=== PATIENT | female | born 1955 | race Caucasian/White ===

== ENCOUNTER 2024-02-01 14:11 | Emergency (ER) | payer MEDICARE, BC, SELFPAY ==
[2024-02-01] VITALS (118 sets, daily range): BP systolic 104–157; BP diastolic 36–108; PULSE 49–93; RESP 11–24; TEMP 36.6; O2SAT 94–100
--- NOTE | 2024-02-01 14:00 | RT.EKG_ITS ---
APPROVED REPORT Exam: Resting ECG Reason for Exam: CP Patient Location: E HR:61 bpm ECG Measurements Heart Rate 61 AXIS AL 199 P -35 QRSd 97 QRS -67 QT 481 T 94 QTc 487 Conclusion Sinus rhythm...normal P axis, V-rate 60- 99 Left anterior fascicular block...axis(240,-40), init forces inf Anterior infarct, old...Q >40mS, abnormal ST-T, V2-V5 sinus rhythm, left axis, prlonged qtc, t wave inversions V1 V2, flattening/biphasis t waves laterally
--- NOTE | 2024-02-01 14:15 | DI.RAD_ITS ---
Exam(s) XR CHEST 2V PA LATERAL EXAM: XR CHEST 2V PA LATERAL CLINICAL HISTORY: chest pain. TECHNIQUE: 2D digital imaging was performed. COMPARISON: No exams were available for comparison FINDINGS: 2 views: Chest leads in place and there is sternotomy wires as well as evidence of previous CABG Heart size is normal. The mediastinum is not widened. Lungs are clear. No infiltrates nor pleural effusions. No evidence of pulmonary edema. No fractures. IMPRESSION: No acute pulmonary findings. Prior sternotomy/CABG. Normal heart size. No CHF. DATA REPOSITORY: RADIATION DOSE DELIVERED:
--- NOTE | 2024-02-01 14:21 | ED.GENADUL_ITS ---
Discharge Plan Disposition Patient Disposition: Transfer-Acute Inpatient Care Specific Acute Inpt Facility: [facility] Condition: Stable Discharge Details Chief Complaint: Chest Pain Clinical Impression: Non-ST elevation CA (NSTEMI) Primary Care Provider: Pedro Luis Dick ED Provider: Keny Kong Home Meds and New Rx's Prescriptions: No Action duloxetine [Cymbalta] 60 mg capsule,delayed release(DR/EC) 60 mg PO DAILY furosemide 80 mg tablet 80 mg PO DAILY topiramate 50 mg capsule,extended release 24hr 50 mg PO BID Incruse Ellipta 62.5 mcg/actuation blister with device 1 inh inhalation DAILY allopurinol 300 mg tablet 300 mg PO DAILY asprin EC 81 mg 81 mg PO DAILY potassium Cl ER 20 mEq 20 meq PO BID metoprolol succinate 50 mg tablet extended release 24 hr 50 mg PO DAILY pravastatin 80 mg tablet 80 mg PO ONCE HPI General Date/Time Provider Initiated Documentation: 02/01/24 14:12 . HPI Narrative: 68-year-old female history of CABG, presents with nonexertional anterior chest pain over the past 12 hours with exertional shortness of breath, initial symptomatology began on . Related Data Home Medications ?Medication ?Instructions ?Recorded ?Confirmed asprin EC 81 mg PO DAILY 02/01/24 02/01/24 allopurinol 300 mg tablet 300 mg PO DAILY 02/01/24 02/01/24 duloxetine 60 mg capsule,delayed 60 mg PO DAILY 02/01/24 02/01/24 release (Cymbalta) furosemide 80 mg tablet 80 mg PO DAILY 02/01/24 02/01/24 metoprolol succinate 50 mg 50 mg PO DAILY 02/01/24 02/01/24 tablet,extended release 24 hr potassium Cl ER 20 meq PO BID 02/01/24 02/01/24 pravastatin 80 mg tablet 80 mg PO ONCE 02/01/24 02/01/24 topiramate 50 mg capsule,extended 50 mg PO BID 02/01/24 02/01/24 release 24 hr umeclidinium 62.5 mcg/actuation 1 inh inhalation DAILY 02/01/24 02/01/24 blister powder for inhalation (Incruse Ellipta) Allergies Allergy/AdvReac Type Severity Reaction Status Date / Time Penicillins Allergy Mild Nausea Verified 02/01/24 14:42 ciprofloxacin Allergy Unknown Unknown Verified 02/01/24 14:42 Dihydroaminopryidine Allergy Unknown Unknown Verified 02/01/24 14:42 Antibiotics naproxen Allergy Unknown Unknown Verified 02/01/24 14:42 NSAIDS (Non-Steroidal Allergy Unknown Unknown Verified 02/01/24 14:42 Anti-Inflamma Quinolones Allergy Unknown Unknown Verified 02/01/24 14:42 Sulfa (Sulfonamide Allergy Unknown Anaphylaxis Verified 02/01/24 14:42 Antibiotics) sulfamethoxazole (From Allergy Unknown Unknown Verified 02/01/24 14:42 Bactrim) trimethoprim Allergy Unknown Anaphylaxis Verified 02/01/24 14:42 salicylates AdvReac Unknown Anaphylaxis Verified 02/01/24 14:42 betalactams Allergy Unknown Unknown Uncoded 02/01/24 14:42 General Stated Complaint: Chest Pain ALEC: 3 Exam Narrative Exam Narrative: Alert oriented interactive speaking full sentences Heart sounds normal no murmurs rubs or gallops Lungs clear bilaterally no wheezes rales or rhonchi Abdomen soft nontender nondistended Extremities without deficits no signs of rash or trauma No peripheral edema Alert oriented cranial nerves intact moving all extremities without deficit no ataxia Course Vital Signs Vital signs: Respiratory Effort Normal 02/01/24 14:14 Pain Level 0 02/01/24 14:10 Medical Decision Making 68-year-old female history of CABG presents with chest pain since worse over the last 12 hours anterior nature associate with exertional shortness of breath. Alert oriented interactive hemodynamically stable speaking full sentences no tachypnea lungs clear normal heart sounds no peripheral edema. EKG left axis some flattening of T waves laterally some T wave inversions anteriorly, some ectopy on monitor. Consider ACS lower suspicion for PE aortic pathology pneumonia pneumothorax versus pleurisy versus costochondritis versus CHF will obtain stat labs chest x-ray; patient loaded with aspirin 324 before ar rival, took a nitro at home and had a nitro and route by EMS which improved her symptoms she is chest pain-free currently 16: 32 patient resting comfortably did receive 1 more nitro after arrival due to some nonexertional mild chest pain right anterior chest resolved, troponin elevated 192 at arrival, repeat 1 hour 192 as well, patient remains chest pain- free hemodynamically stable, given extensive cardiac history involving CABG and stenting I have placed a consultation with [facility] cardiology to determine potential for cardiac catheterization. Heparin has been started. 17: 09 patient having some nausea and chest discomfort repeat EKG showing regular narrow complex rhythm read as junctional however there are P waves present in V2 V3, anterior lateral T waves appear flat compared to inverted and biphasic before. Discussed case with cardiology team at [facility] who is excepted patient for transfer accepting physician Dr. Sahu Quality:[facility] Related Social Needs: No Data to Display PFSH All Active Problems (Updated 01/31/24 @ 13:49 by Elise Fan) Non-ST elevation CA (NSTEMI) (Acute) H/O heart artery stent (Chronic) [address] Lit Boyle [facility] [address] [employer]le[employer] [facility] Medical History (Updated 02/01/24 @ 17:10 by Keny Kong MD) H/O coronary angiogram 2013, 2015, 2021 at [facility] [place] Surgical History (Updated 01/31/24 @ 13:49 by Elise Fan) S/P CABG x [address] Guaman [place] [facility] Social History (Updated 01/31/24 @ 13:44 by Elise Fan) Smoking/Tobacco Use Status: Former Tobacco Use Quit Date: 05/13/90 Tobacco: How many years used: 41 Second Hand Exposure: Yes Smoking risk assessment performed?: Yes Alcohol Intake: never Drug use: Never Caregiver/Support person: No Foster care: No Household members: none Housing: homeless Number of Children: 1 number of grandchildren: 0 Communication Needs: None Education Level: high school Do you need help understanding health information?: Rarely current occupation: none Pets and animals: No Sexually active: No Current gender identity: female What is your relationship status?: How often do you talk on the phone with friends or family?: three or more times per week How often do you get together with friends or relatives?: three or more times per week How often do you attend zoroastrian or gnosticist services?: 1-3 times per year Do you belong to any clubs or organized social groups?: yes Panel score (0-1 are the most socially isolated patients): 2 What type of physical activity do you participate in: weight lifting Duration: 30-45 minutes/day Frequency: 5-6 times per week Scarlett/Restoration: [employer] Seatbelt use: always Helmet use: No Drive intox or ride w/intox front loader residential driver: No
[2024-02-01 14:27] LABS: Abs Immature Grans 0.01 10^3/uL (0.0-0.06); Absolute Basophil Count 0.07 10^3/uL (0.0-0.2); Absolute Eosinophil Count 0.12 10^3/uL (0.0-0.7); Absolute Lymphocyte Count 3.54 10^3/uL (1.2-3.4); Absolute Monocyte Count 0.51 10^3/uL (0.1-0.8); Absolute Neutrophil Count 2.48 10^3/uL (1.2-6.7); Eosinophils % 1.8 %; HCT 36.3 % (36.0-46.0); Immature Grans % 0.1 %; Lymphocytes % 52.6 %; MCH 30.2 pg (27.0-33.0); MCHC 33.1 % (32.0-36.0); MCV 91 fL (80-95); MPV 11.5 fL (8.0-11.0); Monocytes % 7.6 %; Neutrophils % 36.9 %; Platelet Count 276 10^3/uL (130-400); RBC 3.97 10^6/uL (3.93-5.22); RDW 14.1 % (11.7-14.6); RDW-SD 47.8 fL; WBC 6.73 10^3/uL (4.4-10.8)
[2024-02-01 14:46] LABS: PTT Activated 23.2 sec (23.6-32.8); Prothrombin Time 9.9 sec (9.1-11.1)
[2024-02-01 14:54] LABS: ALT 32 U/L (14-59); AST 29 U/L (15-37); Albumin 3.2 g/dL (3.4-5.0); Alkaline Phosphatase 72 U/L (46-116); Anion Gap 10.1 mmol/L (3-11); BUN 9 mg/dL (7-18); Bilirubin, Total 0.38 mg/dL (0.2-1.0); CO2 27.9 mmol/L (21.0-32.0); CREATININE 1.1 mg/dL (0.55-1.02); Calcium 8.8 mg/dL (8.5-10.1); Chloride 102 mmol/L (98-107); Estimated GFR 55.42 (mL/min/1.73m2); Glucose 91 mg/dL (74-106); Potassium 3.4 mmol/L (3.5-5.1); Sodium 140 mmol/L (136-145); Total Protein 7.6 g/dL (6.4-8.2)
[2024-02-01 14:57] LABS: Troponin I 192 ng/L (<or=51)
[2024-02-01] MEDS: Heparin in 0.45% NaCl 25,000 UNIT/250 ML BAG 10 UNIT IV (15:14)
[2024-02-01 15:16] LABS: NT-proBNP 873 pg/mL (<300)
[2024-02-01] MEDS: nitroGLYcerin 0.4 MG TAB SL (15:17)
[2024-02-01 15:53] LABS: Troponin I 192 ng/L (<or=51)
--- NOTE | 2024-02-01 16:45 | RT.EKG_ITS ---
APPROVED REPORT Exam: Resting ECG Reason for Exam: repeat chest pain Patient Location: E HR:56 bpm ECG Measurements Heart Rate 56 AXIS CA [id number] P [id number] QRSd 98 QRS -74 QT 507 T 101 QTc 490 Conclusion Junctional rhythm...absent P waves, slow V-rate Left anterior fascicular block...axis(240,-40), init forces inf Anterior infarct, old...Q >40mS, abnormal ST-T, V2-V5 narrow complex bradycardia, left axis, flattening st segments lateral
[2024-02-01] MEDS: Atorvastatin 40 MG TAB 80 MG PO (17:20)
[2024-02-01] MEDS: Clopidogrel 300 MG TAB 600 MG PO (17:21)
[2024-02-01] MEDS: Ondansetron 4 MG/2 ML VIAL (17:21)
[2024-02-01] MEDS: Ondansetron 4 MG/2 ML VIAL IVP (17:22)
[2024-02-01 20:37] LABS: PTT Activated 23.6 sec (23.6-32.8)
--- NOTE | 2024-02-02 02:44 | NUR.NOTE ---
Nursing Note: Patient transported via [facility] accompanied by RN vitals remained stable and transfer was uneventful. Bedside report given to Cesar Friend RN.
--- NOTE | 2024-02-03 07:30 | NUR.NOTE ---
Access chart to reconcile EKG orders with EKG's in [facility]. Duplicate EKG order cancelled. Nursing Note:
== END 2024-02-01 23:59 | disposition short-term general hospital (02) ==
PROVIDERS: Emergency Provider Emergency Medicine; PCP Family Medicine
DX: I25.2 Old myocardial infarction; Z95.1 Presence of aortocoronary bypass graft; I44.4 Left anterior fascicular block; I21.4 Non-ST elevation (NSTEMI) myocardial infarction
CPT/HCPCS: 36415; 80053; 93005; 96374; 99285; 71046; 83880; 84484; 85025; 85610; 85730; 93010; 99284; J1644; J2405

== ENCOUNTER 2024-02-21 13:52 | Outpatient (CLI) | payer MEDICARE, BC, SELFPAY ==
[2024-02-21 13:26] LABS: Anion Gap 9.8 mmol/L (3-11); BUN 16 mg/dL (7-18); CO2 27.2 mmol/L (21.0-32.0); CREATININE 1.4 mg/dL (0.55-1.02); Calcium 9.2 mg/dL (8.5-10.1); Calculated LDL 88 mg/dL (<100); Chloride 105 mmol/L (98-107); Cholesterol 175 mg/dL (<200); Estimated GFR 41.24 (mL/min/1.73m2); Glucose 158 mg/dL (74-106); HDL Cholesterol 48 mg/dL (40-60); Potassium 3.8 mmol/L (3.5-5.1); Sodium 142 mmol/L (136-145); TSH (W/Ref FT4) 7.12 uIU/mL (0.36-3.74); Triglyceride 195 mg/dL (<150)
[2024-02-21 13:52] LABS: FREE T4 0.81 ng/dL (0.76-1.46)
== END 2024-02-21 13:53 | disposition home or self-care (01) ==
LOC: LBO 13:52
PROVIDERS: PCP Family Medicine; Visit Provider Nurse Practitioner Family
DX: E78.2 Mixed hyperlipidemia (principal); E11.9 Type 2 diabetes mellitus without complications; I73.9 Peripheral vascular disease, unspecified; I21.4 Non-ST elevation (NSTEMI) myocardial infarction; I25.10 Atherosclerotic heart disease of native coronary artery without angina pectoris; Z68.41 Body mass index [BMI] 40.0-44.9, adult; J44.9 Chronic obstructive pulmonary disease, unspecified; Z95.1 Presence of aortocoronary bypass graft; Z98.890 Other specified postprocedural states; I50.32 Chronic diastolic (congestive) heart failure
CPT/HCPCS: 36415; 80048; 80061; 84439; 84443

== ENCOUNTER 2024-04-17 12:05 | Outpatient (REF) | payer MEDICARE, BC, SELFPAY | END 2024-04-17 12:06 | disposition home or self-care (01) | LOC: LBN 12:05 | PROVIDERS: PCP Nurse Practitioner Family; Visit Provider Nurse Practitioner Family | DX: N89.8 Other specified noninflammatory disorders of vagina (principal); R35.0 Frequency of micturition | CPT/HCPCS: 87086; 87480; 87510; 87660 ==

== ENCOUNTER 2024-07-03 15:47 | Outpatient (REF) | payer MEDICARE, BC, SELFPAY ==
[2024-07-03 17:41] LABS: TSH (W/Ref FT4) 2.22 uIU/mL (0.36-3.74)
== END 2024-07-03 15:48 | disposition home or self-care (01) ==
LOC: LBN 15:47
PROVIDERS: PCP Nurse Practitioner Family; Visit Provider Nurse Practitioner Family
DX: R53.83 Other fatigue (principal); R79.89 Other specified abnormal findings of blood chemistry; E11.9 Type 2 diabetes mellitus without complications; K21.9 Gastro-esophageal reflux disease without esophagitis
CPT/HCPCS: 84443